=== PATIENT | female | born 1950 | race Two or more races ===

== ENCOUNTER 2017-03-10 23:54 | Inpatient (IN) | payer MEDICARE ==
[~2017-03-10] VITALS: Ht 165.1 cm; Wt 68.0 kg
[2017-03-11] VITALS (8 sets, daily range): BP systolic 101–159; BP diastolic 51–88
--- NOTE | 2017-03-11 | NUR ---
PT BIBRA FROM HOME TO ER BED 09. HERE FOR MEDICAL CLEARANCE FOR DENYS PSYCH ADMISSION. ON 515 HOLD FOR DTS. PT APPEARS ANXIOUS, HYPER VERBAL. PER FAMILY NOT TAKING MEDICATION. AWAITING MD BARRIOS.
--- NOTE | 2017-03-11 00:12 | NUR ---
WRAPPER CASER AT BEDSIDE FOR BLOOD DRAW.
[2017-03-11 00:44] LABS: BASOPHILS % (AUTO) 0.5 % (0.0-2.0); EOSINOPHILS # (AUTO) 0.1 /CMM (0.0-0.7); EOSINOPHILS % (AUTO) 1.9 % (0.0-6.0); HEMATOCRIT 44 % (33-45); HEMOGLOBIN 14.8 g/dL (11.5-14.8); LYMPHOCYTES # (AUTO) 3.9 /CMM (0.8-4.8); LYMPHOCYTES % (AUTO) 50.4 % (20.0-44.0); MEAN CORPUSCULAR HEMOGLOBIN 32 PG (26.0-33.0); MEAN CORPUSCULAR HGB CONC 34 g/dl (31.0-36.0); MEAN CORPUSCULAR VOLUME 93 fL (82-100); MONOCYTES # (AUTO) 0.6 /CMM (0.1-1.30); MONOCYTES % (AUTO) 7.5 % (2.0-12.0); NEUTROPHILS # (AUTO) 3.1 /CMM (1.8-8.9); NEUTROPHILS % (AUTO) 39.7 % (43.0-81.0); PLATELET COUNT (AUTO) 197 /CMM (150-450); RED BLOOD CELL COUNT(AUTO) 4.69 MIL/uL (4.0-5.2); WHITE BLOOD COUNT (AUTO) 7.7 K/uL (4.3-11.0)
[2017-03-11] MEDS ORDERED: OLANZAPINE 10 MG VIAL IM ONE ×2 (00:45→01:00)
--- NOTE | 2017-03-11 00:49 | NUR ---
PT IS AGITATED. TRYING TO GET OUT OF BED. KICKING. DR VEGA AWARE. MEDICATED ORDERED. SEE MAR.
[2017-03-11] MEDS ORDERED: CLON0.5T4 PO (00:52)
[2017-03-11] MEDS ORDERED: OLAN10TA3 PO (00:52)
[2017-03-11 00:57] LABS: APPEARANCE,URINE CLEAR (CLEAR); BILIRUBIN,URINE 1+ (NEGATIVE); BLOOD, URINE NEGATIVE Ery/uL (NEGATIVE); KETONES,URINE 1+ (NEGATIVE); LEUKOCYTE ESTERASE ,URINE NEGATIVE (NEGATIVE); NITRITE, URINE NEGATIVE (NEGATIVE); PROTEIN,URINE NEGATIVE (NEGATIVE); UGLUCOSE NEGATIVE (NEGATIVE)
[2017-03-11 00:58] LABS: COLOR,URINE DARK YELLOW (YELLOW)
[2017-03-11 01:00] LABS: CALCIUM, SERUM 9.4 mg/dL (8.5-10.1); CARBON DIOXIDE 27 mmol/L (21-32); CHLORIDE 104 mmol/L (98-107); CREATININE 0.8 mg/dL (0.6-1.3); GLUCOSE 110 mg/dL (74-106); POTASSIUM 3.5 mmol/L (3.5-5.1); SODIUM SERUM 143 mmol/L (136-145); UREA NITROGEN, BLOOD 20 mg/dL (7-18)
[2017-03-11 01:11] LABS: ALANINE AMINOTRANSFERASE 31 U/L (12-78); ALBUMIN 3.9 g/dL (3.4-5.0); ALCOHOL, BLOOD < 3 mg/dL (0-0); ALKALINE PHOSPHATASE 136 U/L (46-116); ASPARTATE AMINOTRANSFERASE 19 U/L (15-37); BILIRUBIN,DIRECT 0.1 mg/dL (0.0-0.2); BILIRUBIN,TOTAL 0.6 mg/dL (0.2-1.0); SALICYLATE 6.5 mg/dL (2.8-20.0); TOTAL PROTEIN, SERUM 7.6 g/dL (6.4-8.2)
[2017-03-11 01:11] LABS: BACTERIA,URINE Few /HPF (None Seen); CALCIUM OXALATE CRYSTALS,UR Few /HPF (None Seen); RBC,URINE 0-2 /HPF (0-2); SQUAMOUS EPITHELIAL CELL,UR Many /HPF (None Seen); WBC,URINE 0-2 /HPF (0-3)
--- NOTE | 2017-03-11 01:12 | NUR ---
REPORT GIVEN TO ANTHONY. PT AWAITING TRANSFER TO FLOOR.
[2017-03-11 01:14] LABS: ACETAMINOPHEN 0 ug/ml (10-30)
[2017-03-11] MEDS ORDERED: MAG HYDROX/AL HYDROX/SIMETH 30 ML UDC PO PRN (01:30)
[2017-03-11] MEDS ORDERED: ACETAMINOPHEN 325 MG TABLET PO PRN (01:30)
[2017-03-11] MEDS ORDERED: MAGNESIUM HYDROXIDE 30 ML UDC PO PRN (01:30)
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
[2017-03-11 07:52] LABS: CREATININE 0.7 mg/dL (0.6-1.3)
[2017-03-11] MEDS ORDERED: HALOPERIDOL LACTATE INJ 5 MG/ML VIAL IM STA (10:02)
[2017-03-11] MEDS ORDERED: LORAZEPAM INJ 2 MG/ML VIAL IM STA (10:02)
[2017-03-11] MEDS ORDERED: BENZTROPINE MESYLATE (2MG/2ML) 2 MG/2 ML AMPUL IM STA ×2 (10:02→10:15)
--- NOTE | 2017-03-11 10:15 | NUR ---
PT. AGITATED,VS STABLE ELECTRICAL ENGINEERING TECHNOLOGIST AWARE.
--- NOTE | 2017-03-11 10:17 | NUR ---
DR. HARRELL CALLED AND RECEIVED ORDERS FOR INJECTION.
--- NOTE | 2017-03-11 10:30 | NUR ---
1002 COGENTIN NOT GIVEN ,GIVEN LATER.
--- NOTE | 2017-03-11 10:40 | NUR ---
MONITORING PT. CLOSELY,HAS ONE TO ONE SITTER.
--- NOTE | 2017-03-11 12:30 | NUR ---
DR. HARRELL,DR. STEELE IN TO SEE PT.
[2017-03-11] MEDS: HALOPERIDOL 5 MG TABLET PO SCH ×2 (13:00→17:00)
[2017-03-11] MEDS: BENZTROPINE MESYLATE (1 MG) 1 MG TABLET PO SCH (17:00)
--- NOTE | 2017-03-11 17:15 | NUR ---
DR. HARRELL CALLED REGARDING HALDAVIDA BEING HELD AT 1300 AND 1700 WELL [place] AT 1700,DUE TO LETHARGY. STATES SHE WILL CALL BACK AND CHECK ON PT.
[2017-03-11] MEDS: DIVALPROEX SODIUM 125 MG CAP.SPRINK PO SCH (21:00)
[2017-03-12 06:39] LABS: CHOLESTEROL 140 mg/dL (<200); HDL CHOLESTEROL 29 mg/dL (40-60); LDL 83 mg/dL (0-99); TRIGLYCERIDES 132 mg/dL (30-150)
[2017-03-12 08:00] VITALS: BP 131/81
[2017-03-12] MEDS: BENZTROPINE MESYLATE (1 MG) 1 MG TABLET PO SCH ×2 (09:00→17:00)
[2017-03-12] MEDS: HALOPERIDOL 5 MG TABLET PO SCH ×3 (09:00→17:00)
[2017-03-12] MEDS: DIVALPROEX SODIUM 125 MG CAP.SPRINK PO SCH ×2 (09:00→21:00)
[2017-03-12] MEDS: clonazePAM 0.5 MG TABLET PO PRN (12:22)
--- NOTE | 2017-03-12 12:40 | NUR ---
GPS/RN PATIENT AGITATED, AGGRESSIVE, ANXIOUS, ADMINISTERED KLONOPIN 0.5 MG PO,WILL CONTINUE TO MONITOR.
--- NOTE | 2017-03-12 14:14 | NUR ---
Initial Discharge Note: Patient lives at home with her [address] [place] [address] ([phone]). key worker spoke to patient's ([phone]) who confirmed that patient lives at home with him, per , pt. can return home when she is stable and ready. key worker will help form a safe and proper discharge.
[2017-03-12 16:00] VITALS: BP 124/74
--- NOTE | 2017-03-12 17:05 | NUR ---
GPS/RN PATIENT REFUSED ALL SCHEDULED MEDICATION DURING SHIFT, OFFERED X 3, EXPLAINED RISKS AND BENEFITS,WILL CONTINUE TO ENCOURAGE TO COMPLY WITH MD REGIMEN.
[2017-03-12 20:00] VITALS: BP 139/64
--- NOTE | 2017-03-12 20:00 | NUR ---
GPS RN NOTES RECEIVED PTS A/OX3 AMBULATORY WALKING ON THE DUDLEY WAY , NO SOB NO DISTRESS NOTED , NO C/O OF PAIN .V/S STABLE AFEBRILE , ALL NEEDS ATTENDED TOO. ALL SCHEDULE MEDS REFUSED BY PTS , OFFERED 3X , EXPLAIN R/B STILL PTS REFUSED, WILL CONTINUE TO MONITOR PTS.
[2017-03-12] MEDS: TEMAZEPAM 7.5 MG CAPSULE PO PRN (22:21)
--- NOTE | 2017-03-13 01:00 | NUR ---
GPS RN NOTES PTS BACK TO HER ROOM ON BED SLEEPING, NO SIGNIFICANT CHANGE NOTED , WILL CONTINUE TO MONITOR PTS.
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
[2017-03-13 08:08] VITALS: BP 125/74
[2017-03-13] MEDS: HALOPERIDOL 5 MG TABLET PO SCH ×3 (09:00→17:00)
[2017-03-13] MEDS: DIVALPROEX SODIUM 125 MG CAP.SPRINK PO SCH ×2 (09:00→21:00)
[2017-03-13] MEDS: BENZTROPINE MESYLATE (1 MG) 1 MG TABLET PO SCH ×2 (09:00→17:00)
[2017-03-13] MEDS ORDERED: HALOPERIDOL LACTATE INJ 5 MG/ML VIAL IM ONE (15:20)
[2017-03-13] MEDS ORDERED: LORAZEPAM INJ 2 MG/ML VIAL IM STA (15:20)
[2017-03-13] MEDS ORDERED: diphenhydrAMINE HCL 50 MG/ML VIAL IM STA (15:20)
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
[2017-03-13 16:18] VITALS: BP 145/59
[2017-03-13 20:00] VITALS: BP 139/71
--- NOTE | 2017-03-14 06:45 | NUR ---
RN GPS NOTES REMAINED 1:1 SITTER AT BED SIDE FOR PT. SAFETY , NO ACUTE DISTRESS NOTED,DURING SHIFT NO ANXIOUS BEHAVIOR NOTED, WILL ENDORSE TO NEXT SHIFT FOR CONTINUITY OF CARE .
[2017-03-14 08:00] VITALS: BP 123/76
[2017-03-14] MEDS: BENZTROPINE MESYLATE (1 MG) 1 MG TABLET PO SCH ×4 (09:00→16:18)
[2017-03-14] MEDS: DIVALPROEX SODIUM 125 MG CAP.SPRINK PO SCH ×3 (09:00→21:18)
[2017-03-14] MEDS: HALOPERIDOL 5 MG TABLET PO SCH ×4 (09:27→16:04)
--- NOTE | 2017-03-14 09:30 | NUR ---
MP CISSE IN AM.
--- NOTE | 2017-03-14 15:45 | NUR ---
SPOKE TO AT LENGTH ON PHONE,INSISTS THAT HE IS COMONG TO PICK HER UP AT 5 PM,ADDITIONALLY CALLED JAR FILLER ATTEMPTING TO REACH [employer]STATES UPSET ABOUT BEING HERE.WANTS TO GO HOME TODAY.ASSURED HER THAT SHE IS NOT READY TO GO HOME.
[2017-03-14 16:00] VITALS: BP 150/66
[2017-03-14 20:00] VITALS: BP 152/95
[2017-03-14 22:00] VITALS: BP 128/70
[2017-03-14] MEDS: clonazePAM 0.5 MG TABLET PO PRN (22:04)
--- NOTE | 2017-03-14 22:06 | NUR ---
RN GPS NOTES PT.C/O ANXIETY KLONOPIN 0.5 MG PO PRN GIVEN PER PT. REQUEST, WILL CONTINUE TO MONITOR .
[2017-03-14] MEDS: TEMAZEPAM 7.5 MG CAPSULE PO PRN (23:53)
--- NOTE | 2017-03-15 06:40 | NUR ---
RN GPS NOTES REMAINED 1:1 SITTER AT BED SIDE FOR PT. SAFETY , NO ACUTE DISTRESS NOTED, DURING SHIFT PT WAS COOPERTIVE ,MEDS COMPLY, WILL ENDORSE TO NEXT SHIFT FOR CONTINUITY OF CARE .
--- NOTE | 2017-03-15 07:30 | NUR ---
RN NOTES PT IN BED, 1:1 SITTER AT BED SIDE FOR PT. SAFETY , NO ACUTE DISTRESS NOTED, APPEARS CALM. WILL CONTINUE TO MONITOR.
[2017-03-15 08:24] VITALS: BP 139/55
[2017-03-15] MEDS: BENZTROPINE MESYLATE (1 MG) 1 MG TABLET PO SCH ×2 (09:19→16:58)
[2017-03-15] MEDS: HALOPERIDOL 5 MG TABLET PO SCH ×3 (09:19→16:58)
[2017-03-15] MEDS: DIVALPROEX SODIUM 125 MG CAP.SPRINK PO SCH ×2 (09:19→21:02)
[2017-03-15 15:32] VITALS: BP 147/84
[2017-03-15 16:00] VITALS: BP 147/84
[2017-03-15 20:46] VITALS: BP 124/64
[2017-03-16 08:00] VITALS: BP 140/68
--- NOTE | 2017-03-16 08:00 | NUR ---
dr. CASTANEDA Called and said its ok 5to start the medications
[2017-03-16] MEDS: HALOPERIDOL 5 MG TABLET PO SCH ×3 (09:00→17:00)
[2017-03-16] MEDS: DIVALPROEX SODIUM 125 MG CAP.SPRINK PO SCH ×2 (09:00→21:00)
--- NOTE | 2017-03-16 09:17 | NUR ---
pt refused all po meds took cogentin only ' i dont want those pills it makes me nauseated' encouraged patient to take pills no avail , pt remains controlling and needy ' i have the right to refuse' sitter at bed side hard to redirect.
[2017-03-16] MEDS: BENZTROPINE MESYLATE (1 MG) 1 MG TABLET PO SCH ×2 (10:19→17:00)
--- NOTE | 2017-03-16 16:02 | NUR ---
flume worker spoke to patient's Jonathan Varma ([phone]) who had several questions regarding patient's progress. flume worker provided with an update and answered the patient's questions. Patient's appeared to be satisfied with the information provided. flume worker will follow-up.
[2017-03-16 16:23] VITALS: BP 129/68
--- NOTE | 2017-03-16 17:18 | NUR ---
patient refused too have ekg done pt very non compliance
--- NOTE | 2017-03-16 17:30 | NUR ---
notified dr. blanchard that patient refused her ekg
[2017-03-16 20:00] VITALS: BP 151/70
[2017-03-16 20:19] VITALS: BP 151/70
--- NOTE | 2017-03-16 21:02 | NUR ---
RN NOTES: PATIENT REFUSED HER DEPAKOTE 250 MG PO, SAYING "I DO NOT TAKE THE BLUE-AND- WHITE PILLS. I'M NOT SICK, I'M CLEAR IN MY HEAD AND MY BODY". RISKS AND BENEFITS EXPLAINED, PATIENT STARTED TO BECOME AGITATED AND HYPERVERBAL, KEPT REFUSING.
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
[2017-03-17 08:00] VITALS: BP 125/69
[2017-03-17] MEDS: DIVALPROEX SODIUM 125 MG CAP.SPRINK PO SCH ×3 (09:00→21:00)
[2017-03-17] MEDS: BENZTROPINE MESYLATE (1 MG) 1 MG TABLET PO SCH ×3 (09:00→17:00)
[2017-03-17] MEDS: HALOPERIDOL 5 MG TABLET PO SCH ×2 (09:58→13:56)
[2017-03-17 15:43] VITALS: BP 134/54
[2017-03-17] MEDS ORDERED: HALOPERIDOL DECANOATE IM 100 MG/ML AMPUL IM ONE (17:30)
--- NOTE | 2017-03-17 18:00 | NUR ---
DR. HARRELL IN [facility] ORDERED.CONT. TO REFUSE DEPAKOTE AND COGENTIN.ADDITIONALLY REFUSED EKG TODAY.DR. HARRELL AWARE.
--- NOTE | 2017-03-17 18:44 | NUR ---
RN-CO: PATIENT IS MORE REDIRECTABLE, POLITE AND FOLLOWS DIRECTIONS. DISCONTINUED 1:1.
--- NOTE | 2017-03-17 19:17 | NUR ---
RN-CO: DR HARRELL ORDERED TO PUT BACK 1:1 SITTER FOR TONIGHT ONLY, NOTED AND CARRIED OUT.
[2017-03-17 20:00] VITALS: BP 136/71
[2017-03-17] MEDS ORDERED: HALOPERIDOL 5 MG TABLET PO SCH (20:00)
[2017-03-17 20:02] VITALS: BP 136/71
--- NOTE | 2017-03-17 21:51 | NUR ---
ALL PO MEDS DUE AT HS REFUSED BY THE PT DESPITE EXPLAINING RISKS AND BENEFITS OFFERED 3 TIMES PER PT SHE DOESN'T NEED IT AND DOESN'T WANT TO BE TOUCH STILL REFUSED MD FOLLOWING THIS PT MADE AWARE.
--- NOTE | 2017-03-18 06:48 | NUR ---
GPS CLOSING NOTES RESTING IN BED, TOLERATING ROOM AIR 99%, IN STABLE CONDITION. NO S/S OF DISTRESS, KEPT CLEAN AND DRY AND COMFORTABLE, FREQUENT VISUAL CHECK EVERY 2 HOURS FOR SAFETY, NEEDS ATTENDED AND ANTICIPATED. NURSING CARE RENDERED. ON LOW BED AT ALL TIMES. SAFE HAZARD FREE ENVIRONMENT.
[2017-03-18 08:02] VITALS: BP 122/64
[2017-03-18] MEDS: HALOPERIDOL 5 MG TABLET PO SCH (08:26)
[2017-03-18] MEDS: DIVALPROEX SODIUM 125 MG CAP.SPRINK PO SCH (08:28)
[2017-03-18] MEDS: BENZTROPINE MESYLATE (1 MG) 1 MG TABLET PO SCH ×2 (08:28→17:54)
[2017-03-18] MEDS ORDERED: OLANZAPINE 5 MG/TAB.RAPDIS PO SCH (12:30)
--- NOTE | 2017-03-18 12:30 | NUR ---
DTR. ALIZE SANCHEZ CALLING IN AND REPORTS THAT PT.ROD HER MOM CALLED ANOTHER SISTER TO TELL HER THAT IF SPOUSE DOES NOT PICK HER UP TONIGHT THAT SHE WILL KILL HERSELF.DR. HARRELL HERE AT THE TIME AND INFORMED.BRANCH OFFICER INFORMED.
[2017-03-18] MEDS: OLANZAPINE 5 MG/TAB.RAPDIS PO SCH ×2 (13:49→23:59)
--- NOTE | 2017-03-18 15:34 | NUR ---
RN-CO: Patient is participating in groups, with bright affect, when asked if she is ok she stated " Im ok what about you?"
[2017-03-18 16:00] VITALS: BP 135/83
--- NOTE | 2017-03-18 16:16 | NUR ---
RN-CO: PATIENT IS PLEASANT, WITH BRIGHT AFFECT. WHEN RN ASKED HER IF SHE IS DEPRESSED SHE ANSWERED "I AM NOT." PATIENT DENIED TO ME THAT SHE IS FEELING SUICIDAL NOR FEELING HOPELESS.
--- NOTE | 2017-03-18 18:47 | NUR ---
layla carter dc, d.pt. seems to be in better mood.
[2017-03-18 20:05] VITALS: BP 134/72
[2017-03-19] MEDS: TEMAZEPAM 7.5 MG CAPSULE PO PRN (00:26)
--- NOTE | 2017-03-19 05:45 | NUR ---
PATIENT IN THE [place] PACING IN [address] IN [place] DENIES ANY SI , MED COMPLIANT C/O INSOMNIA PRN RESTORIL 7.5 MG ADMINSTATED , PT IS MONITORED WITH 1:1 SITTER FOR SAFETY CONT TO MONITOR.
[2017-03-19 07:13] LABS: BASOPHILS % (AUTO) 0.7 % (0.0-2.0); EOSINOPHILS # (AUTO) 0.1 /CMM (0.0-0.7); EOSINOPHILS % (AUTO) 1.7 % (0.0-6.0); HEMATOCRIT 40 % (33-45); HEMOGLOBIN 13.7 g/dL (11.5-14.8); LYMPHOCYTES # (AUTO) 3.7 /CMM (0.8-4.8); LYMPHOCYTES % (AUTO) 57.2 % (20.0-44.0); MEAN CORPUSCULAR HEMOGLOBIN 32 PG (26.0-33.0); MEAN CORPUSCULAR HGB CONC 34 g/dl (31.0-36.0); MEAN CORPUSCULAR VOLUME 93 fL (82-100); MONOCYTES # (AUTO) 0.5 /CMM (0.1-1.30); MONOCYTES % (AUTO) 8.5 % (2.0-12.0); NEUTROPHILS # (AUTO) 2.1 /CMM (1.8-8.9); NEUTROPHILS % (AUTO) 31.9 % (43.0-81.0); PLATELET COUNT (AUTO) 145 /CMM (150-450); RDW COEFFICIENT OF VARIATION 13.2 (11.5-15.0); RED BLOOD CELL COUNT(AUTO) 4.32 MIL/uL (4.0-5.2); WHITE BLOOD COUNT (AUTO) 6.4 K/uL (4.3-11.0)
[2017-03-19 07:33] LABS: CALCIUM, SERUM 8.9 mg/dL (8.5-10.1); CREATININE 0.7 mg/dL (0.6-1.3)
[2017-03-19 08:20] VITALS: BP 116/70
[2017-03-19] MEDS: BENZTROPINE MESYLATE (1 MG) 1 MG TABLET PO SCH ×2 (08:37→17:17)
[2017-03-19] MEDS: OLANZAPINE 5 MG/TAB.RAPDIS PO SCH ×2 (12:28→20:21)
[2017-03-19 15:35] VITALS: BP 137/87
[2017-03-19 20:00] VITALS: BP 118/84
[2017-03-20 08:00] VITALS: BP 116/92
[2017-03-20] MEDS: OLANZAPINE 5 MG/TAB.RAPDIS PO SCH ×3 (08:46→20:33)
[2017-03-20] MEDS: BENZTROPINE MESYLATE (1 MG) 1 MG TABLET PO SCH ×2 (08:46→16:38)
[2017-03-20] MEDS: LITHIUM CARBONATE 150 MG CAPSULE PO SCH ×2 (11:30→20:34)
[2017-03-20 16:01] VITALS: BP 120/69
[2017-03-20 20:00] VITALS: BP 148/77
[2017-03-21 07:41] VITALS: BP 148/66
[2017-03-21] MEDS: BENZTROPINE MESYLATE (1 MG) 1 MG TABLET PO SCH ×2 (08:16→17:12)
[2017-03-21] MEDS: OLANZAPINE 5 MG/TAB.RAPDIS PO SCH ×3 (08:16→21:16)
[2017-03-21] MEDS: LITHIUM CARBONATE 150 MG CAPSULE PO SCH ×2 (08:16→21:16)
[2017-03-21 16:00] VITALS: BP 122/92
[2017-03-21 20:00] VITALS: BP 138/76
[2017-03-22 08:15] VITALS: BP 122/69
[2017-03-22] MEDS: LITHIUM CARBONATE 150 MG CAPSULE PO SCH ×2 (09:28→21:21)
[2017-03-22] MEDS: BENZTROPINE MESYLATE (1 MG) 1 MG TABLET PO SCH ×2 (09:29→16:34)
[2017-03-22] MEDS: OLANZAPINE 5 MG/TAB.RAPDIS PO SCH ×3 (09:29→21:22)
[2017-03-22 16:00] VITALS: BP 119/54
[2017-03-22 19:41] VITALS: BP 138/63
[2017-03-23 08:03] LABS: ALBUMIN 3.4 g/dL (3.4-5.0); BILIRUBIN,TOTAL 0.2 mg/dL (0.2-1.0); CALCIUM, SERUM 9.5 mg/dL (8.5-10.1); CREATININE 0.8 mg/dL (0.6-1.3); MAGNESIUM 2.1 mg/dL (1.8-2.4); POTASSIUM 4.3 mmol/L (3.5-5.1); TOTAL PROTEIN, SERUM 6.9 g/dL (6.4-8.2)
[2017-03-23 08:14] VITALS: BP 144/72
[2017-03-23 08:14] LABS: BASOPHILS # (AUTO) 0.1 /CMM (0.0-0.2); BASOPHILS % (AUTO) 0.7 % (0.0-2.0); EOSINOPHILS # (AUTO) 0.2 /CMM (0.0-0.7); EOSINOPHILS % (AUTO) 2.2 % (0.0-6.0); HEMATOCRIT 42 % (33-45); LYMPHOCYTES # (AUTO) 2.9 /CMM (0.8-4.8); MEAN CORPUSCULAR HEMOGLOBIN 32 PG (26.0-33.0); MEAN CORPUSCULAR HGB CONC 33 g/dl (31.0-36.0); MEAN CORPUSCULAR VOLUME 95 fL (82-100); MONOCYTES # (AUTO) 0.6 /CMM (0.1-1.30); MONOCYTES % (AUTO) 8.6 % (2.0-12.0); NEUTROPHILS # (AUTO) 3.2 /CMM (1.8-8.9); NEUTROPHILS % (AUTO) 46.5 % (43.0-81.0); PLATELET COUNT (AUTO) 162 /CMM (150-450); RDW COEFFICIENT OF VARIATION 13.2 (11.5-15.0); RED BLOOD CELL COUNT(AUTO) 4.44 MIL/uL (4.0-5.2)
[2017-03-23] MEDS: OLANZAPINE 5 MG/TAB.RAPDIS PO SCH ×2 (08:44→12:23)
[2017-03-23] MEDS: BENZTROPINE MESYLATE (1 MG) 1 MG TABLET PO SCH (08:44)
[2017-03-23] MEDS: LITHIUM CARBONATE 150 MG CAPSULE PO SCH (08:44)
--- NOTE | 2017-03-23 12:18 | NUR ---
Discharge Note: Patient will be discharged back home to [address] [facility] [address] ([phone]). Patient will be picked up by her , Jonathan Varma ([phone]) via private vehicle. Patient will be picked up by her around 4pm. Patient will follow up with her toll collector, Dr. Arguello [address] [facility], [place] [phone]. Patient will follow up with her psychiatrist, Dr. Adriel Graham [address] [place] [address] on 03/25/17 at 10am. Patient was encouraged to present at a smoking cessation group on 03/29/17 at 5:30pm at [address] [place], [place].
--- NOTE | 2017-03-23 15:35 | NUR ---
GPS/RN - Discharge Notes Patient awake, A/O x 3, calm, no c/o pain, not in any form of distress, VSS, denies SI/HI/AVH at this time. Reviewed discharge instructions with pt and Jonathan both verbalized full understanding of all teachings including medication management and follow up care with Dr. Galvez and Dr. Graham in 1 week. All belongings with the pt and she denies any missing items. Discharge papers and prescription given to pt. Accompanied pt to the lobby and transported via private car.
== END 2017-03-23 15:45 | disposition home or self-care (01) | DRG 885 ==
LOC: ER 23:56 → GPS 03-11 01:11
PROVIDERS: ADMIT Psychiatry & Neurology Psychosomatic Medicine; ATTEND Psychiatry & Neurology Psychosomatic Medicine
DX: F25.0 Schizoaffective disorder, bipolar type (principal); N17.0 Acute kidney failure with tubular necrosis; F29 Unspecified psychosis not due to a substance or known physiological condition; Z79.899 Other long term (current) drug therapy; Z73.6 Limitation of activities due to disability; F32.9 Major depressive disorder, single episode, unspecified; F41.9 Anxiety disorder, unspecified; Z91.19 Patient's noncompliance with other medical treatment and regimen
CPT/HCPCS: 36415; 80048-TC; 80053-TC; 80061-TC; 80076-TC; 80305; 81000-TC; 82565-TC; 83735-TC; 85025-TC; A4606; G0480; J0515; J1200; J1630; J1631; J2060; J3490; Z7610